=== PATIENT | female | born 1940 | race Caucasian/White ===

== ENCOUNTER 2020-01-06 08:34 | Emergency (ER) | payer MEDICARE ==
[~2020-01-06] VITALS: Ht 152.4 cm; Wt 72.6 kg
[2020-01-06] MEDS ORDERED: MORPHINE SULFATE INJ 4 MG/ML INJ 1ML IM STA (08:44)
[2020-01-06] MEDS ORDERED: METHYLPREDNISOLONE SOD SUCC 125 MG/2ML VIAL IV STA (08:44)
--- NOTE | 2020-01-06 08:44 | Emergency Department Note ---
History of Present Illnes History of Present Illness Chief Complaint: Back Pain History of Present Illness This is a 79 year old female with previous dx of cervical radiculopathy and reports worsening pain R UE . Reports that she had recently ran out of her tylenol #3 and ultram . Historian: Patient Arrival Mode: Car Onset (how long ago): week(s) Severity: moderate Onset quality: gradual Duration (how long): week(s) Timing of current episode: constant Progression: worsening Chronicity: recurrent Context: Denies trauma/injury Relieving factors: immobilization, rest Exacerbating factors: movement Associated symptoms: Denies denies other symptoms, Denies confusion, Denies chest pain, Denies cough, Denies diaphoresis, Denies fever/chills, Denies headaches, Denies loss of appetite, Denies malaise, Denies nausea/vomiting, Denies rash, Denies seizure, Denies shortness of breath, Denies syncope, Denies weakness, Denies other Previous service: tests performed Past Medical/Family History Physician Review I have reviewed the patient's past medical and family history. Any updates have been documented here. Past Medical History Recent Fever: No Clinical Suspicion of Infectio: No New/Unexplained Change in Ment: No Other Medical History: cervical radiculopathy Past Surgical History: None Social History Smoking Cessation: Never Smoker Alcohol Use: None Any Illegal Drug Use: No Review of Systems Review of Systems Constitutional: Reports no symptoms EENTM: Reports no symptoms Cardiovascular: Reports no symptoms Respiratory: Reports no symptoms Gastrointestinal: Reports no symptoms Genitourinary: Reports no symptoms Musculoskeletal: Reports joint pain, Reports muscle pain Integumentary: Reports no symptoms Neurological: Reports no symptoms Psychological: Reports no symptoms Endocrine: Reports no symptoms Hematological/Lymphatic: Reports no symptoms Physical Exam Related Data Allergies: Coded Allergies: Penicillins (Verified Allergy, Unknown, 01/06/20) montelukast (Verified Allergy, Unknown, 01/06/20) Vital signs reviewed: Yes Physical Exam CONSTITUTIONAL Constitutional: Present well-developed, Present well-nourished HENT HENT: Present normocephalic, Present atraumatic, Present oropharynx clear/moist, Present nose normal HENT L/R: Present left ext ear normal, Present right ext ear normal EYES Eyes: Reports PERRL, Reports conjunctivae normal NECK Neck: Present ROM normal PULMONARY Pulmonary: Present effort normal, Present breath sounds normal CARDIOVASCULAR Cardiovascular: Present regular rhythm, Present heart sounds normal, Present capillary refill normal, Present normal rate GASTROINTESTINAL Abdominal: Present soft, Present nontender, Present bowel sounds normal GENITOURINARY Genitourinary: Present exam deferred SKIN Skin: Present warm, Present dry MUSCULOSKELETAL Musculoskeletal: Present ROM normal, Present tenderness (R paracervical spinal tenderness) NEUROLOGICAL Neurological: Present alert, Present oriented x 3, Present no gross motor or sensory deficits PSYCHOLOGICAL Psychological: Present mood/affect normal, Present judgement normal Assessment & Plan Medical Decision Making MDM Diff Dx : shoulder sprain, cervical radiculopathy, musc sprain Assessment & Plan Final Impression: (1) Cervical radiculopathy Depart Disposition: HOME, SELF-CARE [facility]LEY GIRALDO DO Jan 06, 2020 08:44
[2020-01-06] MEDS ORDERED: METHYLPREDNISOLONE SOD SUCC 125 MG/2ML VIAL ONE (08:56)
[2020-01-06] MEDS ORDERED: MORPHINE SULFATE INJ 4 MG/ML INJ 1ML ONE (08:56)
== END 2020-01-06 09:01 | disposition home or self-care (01) ==
LOC: FSED 08:44
DX: M54.12 Radiculopathy, cervical region (principal)
CPT/HCPCS: 99283; J2270; J2930

== ENCOUNTER 2022-05-24 20:38 | Inpatient (IN) | payer MEDICARE ==
[~2022-05-24] VITALS: Ht 160 cm; Wt 84.2 kg
[2022-05-24] MEDS ORDERED: ALBUTEROL SULF 0.083% NEB SOLN 3 ML NEB NEB STA (20:41)
[2022-05-24] MEDS ORDERED: ASPIRIN 81 MG CHEW TAB PO ONE (20:45)
[2022-05-24] MEDS ORDERED: IPRATROPIUM BROMIDE 0.02% 2.5 ML NEB NEB ONE (20:45)
[2022-05-24] MEDS ORDERED: METHYLPREDNISOLONE SOD SUCC 125 MG/2ML VIAL IV ONE (20:45)
[2022-05-24 21:13] LABS: BASOPHILS % 0.4 % (0.0-1.0); EOSINOPHILS # (AUTO) 0.1 (0.0-0.4); EOSINOPHILS % 0.5 % (0.0-6.0); HEMOGLOBIN 13.9 g/dL (12.0-16.0); LYMPHOCYTES # (AUTO) 0.7 (1.0-3.2); LYMPHOCYTES % 7.2 % (18.0-39.1); MEAN CORPUSCULAR HEMOGLOBIN 29.3 pg (28-32); MEAN CORPUSCULAR HGB CONC 31.6 g/dL (31-35); MEAN CORPUSCULAR VOLUME 92.8 fL (81-99); MONOCYTES # (AUTO) 0.3 (0.2-0.8); MONOCYTES % 3.1 % (4.4-11.3); NEUTROPHILS # (AUTO) 8.4 (2.1-6.9); NEUTROPHILS % 88.5 % (38.7-80.0); PLATELET COUNT 221 x10e3/uL (140-360); RED BLOOD COUNT 4.74 x10e6/uL (3.6-5.1); RED CELL DISTRIBUTION WIDTH 16.7 % (11.7-14.4)
[2022-05-24 21:30] LABS: ALBUMIN 3.6 g/dL (3.5-5.0); ALBUMIN/GLOBULIN RATIO 1.1 (0.8-2.0); ANION GAP 16.5 mmol/L (8-16); CALCIUM 8.6 mg/dL (8.4-10.2); CREATININE, SERUM 1.39 mg/dL (0.57-1.11); POTASSIUM 3.5 mmol/L (3.5-5.1)
[2022-05-24 21:37] LABS: CREATINE KINASE MB 4.6 ng/mL (0-5.0)
[2022-05-24] MEDS ORDERED: FUROSEMIDE INJ 10 MG/ML 4 ML VIAL IV ONE (21:45)
[2022-05-24] MEDS ORDERED: ALBUTEROL/IPRATROPIUM 3 ML NEB NEB SCH (23:00)
[2022-05-24 23:37] VITALS: BP 159/77
[2022-05-24] MEDS ORDERED: IPRATROPIUM BROMIDE 0.02% 2.5 ML NEB ONE (23:56)
[2022-05-24] MEDS ORDERED: ALBUTEROL SULF 0.083% NEB SOLN 3 ML NEB ONE (23:57)
[2022-05-25] VITALS (7 sets, daily range): BP systolic 160–186; BP diastolic 63–79
[2022-05-25] MEDS ORDERED: TRELEGY ELLIPT1 EACH INH (00:36)
[2022-05-25] MEDS ORDERED: ELIQUIS2.5 MG PO (00:36)
[2022-05-25] MEDS ORDERED: FUROSEMIDE40 MG PO (00:36)
[2022-05-25] MEDS ORDERED: AMIODARONE HCL100 MG PO (00:36)
[2022-05-25] MEDS ORDERED: ALLOPURINOL100 MG PO (00:36)
[2022-05-25] MEDS ORDERED: LEVOTHYROXINE50 MCG PO (00:36)
[2022-05-25] MEDS ORDERED: ATORVASTATIN CA40 MG PO (00:36)
[2022-05-25 05:12] LABS: BASOPHILS % 0.4 % (0.0-1.0); HEMATOCRIT 43.6 % (34.2-44.1); HEMOGLOBIN 14.1 g/dL (12.0-16.0); LYMPHOCYTES # (AUTO) 0.2 (1.0-3.2); LYMPHOCYTES % 3.5 % (18.0-39.1); MEAN CORPUSCULAR HEMOGLOBIN 29.7 pg (28-32); MEAN CORPUSCULAR HGB CONC 32.3 g/dL (31-35); MEAN CORPUSCULAR VOLUME 91.8 fL (81-99); MONOCYTES # (AUTO) 0.1 (0.2-0.8); NEUTROPHILS # (AUTO) 5.1 (2.1-6.9); NEUTROPHILS % 93.9 % (38.7-80.0); PLATELET COUNT 226 x10e3/uL (140-360); RED BLOOD COUNT 4.75 x10e6/uL (3.6-5.1); RED CELL DISTRIBUTION WIDTH 16.4 % (11.7-14.4)
[2022-05-25 05:24] LABS: ALBUMIN 3.5 g/dL (3.5-5.0); ALBUMIN/GLOBULIN RATIO 1.1 (0.8-2.0); ANION GAP 18.3 mmol/L (8-16); CALCIUM 9.1 mg/dL (8.4-10.2); CREATININE, SERUM 1.19 mg/dL (0.57-1.11); POTASSIUM 3.3 mmol/L (3.5-5.1)
[2022-05-25 05:49] LABS: CREATINE KINASE MB 5.4 ng/mL (0-5.0)
[2022-05-25] MEDS: METHYLPREDNISOLONE SOD SUCC 40 MG/ML VIAL 1ML IV SCH ×4 (06:39→17:31)
[2022-05-25] MEDS: IPRATROPIUM BROMIDE 0.02% 2.5 ML NEB NEB SCH ×6 (07:15→23:30)
[2022-05-25] MEDS: ALBUTEROL SULF 0.083% NEB SOLN 3 ML NEB NEB SCH ×6 (07:15→23:30)
[2022-05-25] MEDS: FUROSEMIDE INJ 10 MG/ML 4 ML VIAL IV SCH ×2 (08:30→17:30)
[2022-05-25] MEDS ORDERED: ONDANSETRON HCL INJ 2MG/ML 2ML 2 MG/ML VIAL IV PRN (08:45)
[2022-05-25] MEDS ORDERED: POTASSIUM CHLORIDE 20 MEQ TAB CR PO ONE (09:30)
[2022-05-25] MEDS: DOCUSATE SODIUM 100 MG CAP PO SCH (09:32)
[2022-05-25] MEDS: CEPACOL SORE THROAT LOZENGES PO PRN (09:33)
[2022-05-25] MEDS: APIXAB 2.5 MG TABLET PO SCH ×2 (09:33→17:30)
[2022-05-25] MEDS: GUAIFENESIN 200 MG/10 ML UDC PO PRN (09:33)
[2022-05-25] MEDS: AMIODARONE HCL 200 MG TAB PO SCH (09:33)
[2022-05-25] MEDS: ALLOPURINOL 100 MG TAB PO SCH (09:34)
[2022-05-25] MEDS: SENNOSIDES 8.6 MG TAB PO SCH (09:34)
[2022-05-25] MEDS: ACETAMINOPHEN 325 MG TAB PO PRN ×2 (09:35→21:10)
[2022-05-25] MEDS: LEVOTHYROXINE SODIUM 50 MCG TAB PO SCH (09:36)
[2022-05-25 14:55] LABS: CREATINE KINASE MB 6.7 ng/mL (0-5.0)
[2022-05-25 15:09] LABS: POTASSIUM 3.8 mmol/L (3.5-5.1)
[2022-05-25] MEDS ORDERED: APIXAB 2.5 MG TABLET PO SCH (17:00)
[2022-05-25] MEDS ORDERED: ROPINIROLE HCL1 MG PO (19:49)
[2022-05-25] MEDS: ATORVASTATIN 40 MG TAB PO SCH (21:09)
[2022-05-25] MEDS: ROPINIROLE HCL 1 MG TAB PO SCH (23:09)
[2022-05-26] VITALS (7 sets, daily range): BP systolic 118–176; BP diastolic 59–80
[2022-05-26] MEDS: METHYLPREDNISOLONE SOD SUCC 40 MG/ML VIAL 1ML IV SCH ×4 (00:19→17:54)
[2022-05-26] MEDS: ALBUTEROL SULF 0.083% NEB SOLN 3 ML NEB NEB SCH ×5 (03:30→19:20)
[2022-05-26] MEDS: IPRATROPIUM BROMIDE 0.02% 2.5 ML NEB NEB SCH ×5 (03:30→19:25)
[2022-05-26 05:33] LABS: BASOPHILS % 0.1 % (0.0-1.0); HEMATOCRIT 44.8 % (34.2-44.1); HEMOGLOBIN 14.3 g/dL (12.0-16.0); LYMPHOCYTES # (AUTO) 0.4 (1.0-3.2); LYMPHOCYTES % 4.9 % (18.0-39.1); MEAN CORPUSCULAR HEMOGLOBIN 29.5 pg (28-32); MEAN CORPUSCULAR HGB CONC 31.9 g/dL (31-35); MEAN CORPUSCULAR VOLUME 92.4 fL (81-99); MONOCYTES # (AUTO) 0.5 (0.2-0.8); MONOCYTES % 6.3 % (4.4-11.3); NEUTROPHILS # (AUTO) 6.9 (2.1-6.9); NEUTROPHILS % 88.3 % (38.7-80.0); PLATELET COUNT 248 x10e3/uL (140-360); RED BLOOD COUNT 4.85 x10e6/uL (3.6-5.1); RED CELL DISTRIBUTION WIDTH 16.6 % (11.7-14.4)
[2022-05-26 06:02] LABS: ALBUMIN 3.4 g/dL (3.5-5.0); ANION GAP 18.6 mmol/L (8-16); CALCIUM 9.4 mg/dL (8.4-10.2); CREATININE, SERUM 1.23 mg/dL (0.57-1.11); MAGNESIUM 2.1 MG/DL (1.3-2.1); POTASSIUM 3.6 mmol/L (3.5-5.1)
[2022-05-26] MEDS: LEVOTHYROXINE SODIUM 50 MCG TAB PO SCH (06:23)
[2022-05-26] MEDS ORDERED: AMIODARONE HCL 200 MG TAB PO SCH (09:00)
[2022-05-26] MEDS ORDERED: LEVOTHYROXINE SODIUM 50 MCG TAB PO SCH (09:30)
[2022-05-26] MEDS: APIXAB 2.5 MG TABLET PO SCH ×2 (09:53→17:54)
[2022-05-26] MEDS: AMIODARONE HCL 200 MG TAB PO SCH (09:53)
[2022-05-26] MEDS: ALLOPURINOL 100 MG TAB PO SCH (09:53)
[2022-05-26] MEDS: DOCUSATE SODIUM 100 MG CAP PO SCH (09:53)
[2022-05-26] MEDS: FUROSEMIDE INJ 10 MG/ML 4 ML VIAL IV SCH ×2 (09:53→17:54)
[2022-05-26] MEDS: SENNOSIDES 8.6 MG TAB PO SCH (09:53)
[2022-05-26] MEDS: CEPACOL SORE THROAT LOZENGES PO PRN ×2 (10:06→18:13)
[2022-05-26] MEDS: GUAIFENESIN 200 MG/10 ML UDC PO PRN ×2 (10:06→18:13)
[2022-05-26] MEDS: ACETAMINOPHEN 325 MG TAB PO PRN ×2 (10:15→20:10)
[2022-05-26] MEDS ORDERED: ONDANSETRON HCL 4 MG ORAL DISINTEGRATING TAB PO PRN (11:15)
[2022-05-26] MEDS ORDERED: METOLAZONE 5 MG TAB PO ONE (18:55)
[2022-05-26] MEDS: ROPINIROLE HCL 1 MG TAB PO SCH (20:07)
[2022-05-26] MEDS: ATORVASTATIN 40 MG TAB PO SCH (20:07)
[2022-05-27] VITALS (11 sets, daily range): BP systolic 122–180; BP diastolic 68–83
[2022-05-27] MEDS: METHYLPREDNISOLONE SOD SUCC 40 MG/ML VIAL 1ML IV SCH ×2 (01:32→05:35)
[2022-05-27] MEDS: ALBUTEROL SULF 0.083% NEB SOLN 3 ML NEB NEB SCH ×6 (03:10→22:34)
[2022-05-27] MEDS: IPRATROPIUM BROMIDE 0.02% 2.5 ML NEB NEB SCH ×6 (03:10→22:34)
[2022-05-27 04:56] LABS: BASOPHILS % 0.1 % (0.0-1.0); HEMATOCRIT 46.5 % (34.2-44.1); HEMOGLOBIN 14.7 g/dL (12.0-16.0); LYMPHOCYTES # (AUTO) 0.4 (1.0-3.2); LYMPHOCYTES % 5.1 % (18.0-39.1); MEAN CORPUSCULAR HEMOGLOBIN 29.6 pg (28-32); MEAN CORPUSCULAR HGB CONC 31.6 g/dL (31-35); MEAN CORPUSCULAR VOLUME 93.8 fL (81-99); MONOCYTES # (AUTO) 0.4 (0.2-0.8); MONOCYTES % 5.6 % (4.4-11.3); NEUTROPHILS % 88.6 % (38.7-80.0); PLATELET COUNT 263 x10e3/uL (140-360); RED BLOOD COUNT 4.96 x10e6/uL (3.6-5.1); RED CELL DISTRIBUTION WIDTH 16.7 % (11.7-14.4)
[2022-05-27 05:23] LABS: ALBUMIN 3.5 g/dL (3.5-5.0); ALBUMIN/GLOBULIN RATIO 1.1 (0.8-2.0); ANION GAP 17.8 mmol/L (8-16); CALCIUM 9.2 mg/dL (8.4-10.2); CREATININE, SERUM 1.55 mg/dL (0.57-1.11); MAGNESIUM 2.3 MG/DL (1.3-2.1); POTASSIUM 3.8 mmol/L (3.5-5.1)
[2022-05-27] MEDS: LEVOTHYROXINE SODIUM 50 MCG TAB PO SCH (05:36)
[2022-05-27 06:49] LABS: ANION GAP 17.7 mmol/L (8-16); CALCIUM 9.3 mg/dL (8.4-10.2); CREATININE, SERUM 1.52 mg/dL (0.57-1.11); POTASSIUM 3.7 mmol/L (3.5-5.1)
[2022-05-27] MEDS: GUAIFENESIN 200 MG/10 ML UDC PO PRN ×2 (07:57→21:45)
[2022-05-27] MEDS: CEPACOL SORE THROAT LOZENGES PO PRN (07:58)
[2022-05-27] MEDS: ACETAMINOPHEN 325 MG TAB PO PRN ×2 (07:58→21:45)
[2022-05-27] MEDS ORDERED: METOLAZONE 5 MG TAB PO SCH (09:00)
[2022-05-27] MEDS ORDERED: HYDRALAZINE HCL 20 MG/ML VIAL IV PRN (09:00)
[2022-05-27] MEDS: APIXAB 2.5 MG TABLET PO SCH ×2 (09:21→17:31)
[2022-05-27] MEDS: FUROSEMIDE INJ 10 MG/ML 2 ML VIAL IV SCH ×2 (09:21→17:32)
[2022-05-27] MEDS: ALLOPURINOL 100 MG TAB PO SCH (09:22)
[2022-05-27] MEDS: AZITHROMYCIN 250 MG TAB PO SCH (09:22)
[2022-05-27] MEDS: AMIODARONE HCL 200 MG TAB PO SCH (09:22)
[2022-05-27] MEDS: SENNOSIDES 8.6 MG TAB PO SCH (09:23)
[2022-05-27] MEDS: DOCUSATE SODIUM 100 MG CAP PO SCH (09:25)
[2022-05-27 11:39] LABS: ANION GAP 16.7 mmol/L (8-16); CALCIUM 9.3 mg/dL (8.4-10.2); CREATININE, SERUM 1.56 mg/dL (0.57-1.11); POTASSIUM 3.7 mmol/L (3.5-5.1)
[2022-05-27] MEDS ORDERED: Vancomycin IV 1 GM in SODIUM CHLORIDE 0.9% 250ML 250 ML IV ONE (11:45)
[2022-05-27] MEDS: AMLODIPINE BESYLATE 5 MG TAB PO SCH (11:47)
[2022-05-27] MEDS ORDERED: IOPAMIDOL 370 MG/ML 100 ML INFUS..BTL INJ ONE (12:54)
[2022-05-27] MEDS: ROPINIROLE HCL 1 MG TAB PO SCH (21:46)
[2022-05-27] MEDS: ATORVASTATIN 40 MG TAB PO SCH (21:47)
[2022-05-28] VITALS (7 sets, daily range): BP systolic 135–163; BP diastolic 62–78
[2022-05-28] MEDS: IPRATROPIUM BROMIDE 0.02% 2.5 ML NEB NEB SCH ×5 (03:30→19:00)
[2022-05-28] MEDS: ALBUTEROL SULF 0.083% NEB SOLN 3 ML NEB NEB SCH ×2 (03:30→06:30)
[2022-05-28] MEDS: LEVOTHYROXINE SODIUM 50 MCG TAB PO SCH (05:47)
[2022-05-28 06:03] LABS: BASOPHILS % 0.6 % (0.0-1.0); EOSINOPHILS % 0.4 % (0.0-6.0); HEMATOCRIT 46.2 % (34.2-44.1); HEMOGLOBIN 14.6 g/dL (12.0-16.0); LYMPHOCYTES % 14.3 % (18.0-39.1); MEAN CORPUSCULAR HEMOGLOBIN 29.1 pg (28-32); MEAN CORPUSCULAR HGB CONC 31.6 g/dL (31-35); MONOCYTES # (AUTO) 0.9 (0.2-0.8); MONOCYTES % 13.2 % (4.4-11.3); NEUTROPHILS % 71.1 % (38.7-80.0); PLATELET COUNT 260 x10e3/uL (140-360); RED BLOOD COUNT 5.02 x10e6/uL (3.6-5.1); RED CELL DISTRIBUTION WIDTH 16.1 % (11.7-14.4)
[2022-05-28 06:38] LABS: ALBUMIN 3.4 g/dL (3.5-5.0); ALBUMIN/GLOBULIN RATIO 1.2 (0.8-2.0); ANION GAP 17.3 mmol/L (8-16); CREATININE, SERUM 1.48 mg/dL (0.57-1.11); MAGNESIUM 2.2 MG/DL (1.3-2.1); POTASSIUM 3.3 mmol/L (3.5-5.1)
[2022-05-28] MEDS: APIXAB 2.5 MG TABLET PO SCH ×2 (08:29→17:04)
[2022-05-28] MEDS: ACETAMINOPHEN 325 MG TAB PO PRN ×2 (08:29→21:10)
[2022-05-28] MEDS: SENNOSIDES 8.6 MG TAB PO SCH (08:30)
[2022-05-28] MEDS: ALLOPURINOL 100 MG TAB PO SCH (08:30)
[2022-05-28] MEDS: FUROSEMIDE INJ 10 MG/ML 2 ML VIAL IV SCH (08:30)
[2022-05-28] MEDS: AMLODIPINE BESYLATE 5 MG TAB PO SCH (08:30)
[2022-05-28] MEDS: PREDNISONE 20 MG TAB PO SCH (08:30)
[2022-05-28] MEDS: AZITHROMYCIN 250 MG TAB PO SCH (08:30)
[2022-05-28] MEDS: DOCUSATE SODIUM 100 MG CAP PO SCH (08:30)
[2022-05-28] MEDS: AMIODARONE HCL 200 MG TAB PO SCH (08:31)
[2022-05-28] MEDS ORDERED: ONDANSETRON HCL 4 MG ORAL DISINTEGRATING TAB PO PRN (09:15)
[2022-05-28] MEDS ORDERED: POTASSIUM CHLORIDE 10MEQ EA PO ONE ×2 (10:00→14:10)
[2022-05-28] MEDS: BUDESONIDE 0.5MG/2 ML NEB INH SCH (19:00)
[2022-05-28] MEDS: ROPINIROLE HCL 1 MG TAB PO SCH (21:10)
[2022-05-28] MEDS: ATORVASTATIN 40 MG TAB PO SCH (21:11)
[2022-05-29] VITALS (8 sets, daily range): BP systolic 131–168; BP diastolic 60–79
[2022-05-29] MEDS: IPRATROPIUM BROMIDE 0.02% 2.5 ML NEB NEB SCH ×4 (00:25→19:05)
[2022-05-29] MEDS: LEVOTHYROXINE SODIUM 50 MCG TAB PO SCH (05:54)
[2022-05-29] MEDS: BUDESONIDE 0.5MG/2 ML NEB INH SCH ×2 (06:30→19:05)
[2022-05-29 07:11] LABS: BASOPHILS # (AUTO) 0.1 (0.0-0.1); BASOPHILS % 0.8 % (0.0-1.0); EOSINOPHILS # (AUTO) 0.1 (0.0-0.4); EOSINOPHILS % 1.4 % (0.0-6.0); HEMATOCRIT 44.8 % (34.2-44.1); HEMOGLOBIN 14.5 g/dL (12.0-16.0); LYMPHOCYTES # (AUTO) 1.1 (1.0-3.2); LYMPHOCYTES % 16.7 % (18.0-39.1); MEAN CORPUSCULAR HEMOGLOBIN 29.4 pg (28-32); MEAN CORPUSCULAR HGB CONC 32.4 g/dL (31-35); MEAN CORPUSCULAR VOLUME 90.9 fL (81-99); MONOCYTES # (AUTO) 0.8 (0.2-0.8); MONOCYTES % 12.1 % (4.4-11.3); NEUTROPHILS # (AUTO) 4.4 (2.1-6.9); NEUTROPHILS % 68.5 % (38.7-80.0); PLATELET COUNT 257 x10e3/uL (140-360); RED BLOOD COUNT 4.93 x10e6/uL (3.6-5.1); RED CELL DISTRIBUTION WIDTH 15.6 % (11.7-14.4)
[2022-05-29 07:27] LABS: POTASSIUM 3.3 mmol/L (3.5-5.1)
[2022-05-29 07:28] LABS: ANION GAP 15.3 mmol/L (8-16); CALCIUM 8.9 mg/dL (8.4-10.2); CREATININE, SERUM 1.3 mg/dL (0.57-1.11)
[2022-05-29 08:02] LABS: MAGNESIUM 2.4 MG/DL (1.3-2.1)
[2022-05-29] MEDS: DOCUSATE SODIUM 100 MG CAP PO SCH (09:20)
[2022-05-29] MEDS: SENNOSIDES 8.6 MG TAB PO SCH (09:20)
[2022-05-29] MEDS: ALLOPURINOL 100 MG TAB PO SCH (09:21)
[2022-05-29] MEDS: AZITHROMYCIN 250 MG TAB PO SCH (09:21)
[2022-05-29] MEDS: APIXAB 2.5 MG TABLET PO SCH ×2 (09:21→16:23)
[2022-05-29] MEDS: PREDNISONE 20 MG TAB PO SCH (09:22)
[2022-05-29] MEDS: AMLODIPINE BESYLATE 5 MG TAB PO SCH (09:22)
[2022-05-29] MEDS: AMIODARONE HCL 200 MG TAB PO SCH (09:22)
[2022-05-29] MEDS ORDERED: POTASSIUM CHLORIDE 10MEQ EA PO ONE (10:15)
[2022-05-29 10:51] LABS: LYMPHOCYTES % (MANUAL) 14 % (19-48); MONOCYTES % (MANUAL) 12 % (3.4-9.0); NEUTROPHILS % (MANUAL) 74 % (40-74); PLATELET ESTIMATE ADEQUATE
[2022-05-29 10:52] LABS: PLATELET MORPHOLOGY COMMENT NORMAL; RBC MORPHOLOGY COMMENT NORMAL
[2022-05-29] MEDS ORDERED: MAGNESIUM/ALUMINUM/SIMETHICONE 30 ML UDC PO PRN (12:30)
[2022-05-29] MEDS: ATORVASTATIN 40 MG TAB PO SCH (20:56)
[2022-05-29] MEDS: ROPINIROLE HCL 1 MG TAB PO SCH (20:56)
[2022-05-29] MEDS: ACETAMINOPHEN 325 MG TAB PO PRN (20:58)
[2022-05-30] VITALS (9 sets, daily range): BP systolic 134–158; BP diastolic 64–76
[2022-05-30] MEDS: IPRATROPIUM BROMIDE 0.02% 2.5 ML NEB NEB SCH ×4 (00:25→19:05)
[2022-05-30] MEDS: LEVOTHYROXINE SODIUM 50 MCG TAB PO SCH (06:14)
[2022-05-30] MEDS: BUDESONIDE 0.5MG/2 ML NEB INH SCH ×2 (07:00→19:05)
[2022-05-30] MEDS: APIXAB 2.5 MG TABLET PO SCH ×2 (08:37→16:22)
[2022-05-30] MEDS: AZITHROMYCIN 250 MG TAB PO SCH (08:37)
[2022-05-30] MEDS: PREDNISONE 20 MG TAB PO SCH (08:37)
[2022-05-30] MEDS: SENNOSIDES 8.6 MG TAB PO SCH (08:38)
[2022-05-30] MEDS: AMLODIPINE BESYLATE 5 MG TAB PO SCH (08:38)
[2022-05-30] MEDS: DOCUSATE SODIUM 100 MG CAP PO SCH (08:38)
[2022-05-30] MEDS: ALLOPURINOL 100 MG TAB PO SCH (08:38)
[2022-05-30] MEDS: AMIODARONE HCL 200 MG TAB PO SCH (08:38)
[2022-05-30] MEDS ORDERED: POTASSIUM CHLORIDE 10MEQ EA PO ONE (10:00)
[2022-05-30] MEDS ORDERED: HYDROXYZINE HCL 10 MG TAB PO PRN (10:15)
[2022-05-30] MEDS: ATORVASTATIN 40 MG TAB PO SCH (20:38)
[2022-05-30] MEDS: ROPINIROLE HCL 1 MG TAB PO SCH (20:38)
[2022-05-31] VITALS (7 sets, daily range): BP systolic 138–161; BP diastolic 58–94
[2022-05-31] MEDS: IPRATROPIUM BROMIDE 0.02% 2.5 ML NEB NEB SCH ×4 (01:00→19:20)
[2022-05-31] MEDS: LEVOTHYROXINE SODIUM 50 MCG TAB PO SCH (04:58)
[2022-05-31] MEDS: BUDESONIDE 0.5MG/2 ML NEB INH SCH ×2 (06:30→19:20)
[2022-05-31] MEDS: AMIODARONE HCL 200 MG TAB PO SCH (09:00)
[2022-05-31 09:04] LABS: BASOPHILS # (AUTO) 0.1 (0.0-0.1); BASOPHILS % 0.9 % (0.0-1.0); EOSINOPHILS # (AUTO) 0.3 (0.0-0.4); EOSINOPHILS % 4.3 % (0.0-6.0); HEMATOCRIT 50.5 % (34.2-44.1); HEMOGLOBIN 15.6 g/dL (12.0-16.0); LYMPHOCYTES # (AUTO) 1.7 (1.0-3.2); LYMPHOCYTES % 22.5 % (18.0-39.1); MEAN CORPUSCULAR HEMOGLOBIN 29.2 pg (28-32); MEAN CORPUSCULAR HGB CONC 30.9 g/dL (31-35); MEAN CORPUSCULAR VOLUME 94.4 fL (81-99); MONOCYTES # (AUTO) 0.6 (0.2-0.8); MONOCYTES % 8.4 % (4.4-11.3); NEUTROPHILS # (AUTO) 4.9 (2.1-6.9); NEUTROPHILS % 63.6 % (38.7-80.0); PLATELET COUNT 275 x10e3/uL (140-360); RED BLOOD COUNT 5.35 x10e6/uL (3.6-5.1); RED CELL DISTRIBUTION WIDTH 16.2 % (11.7-14.4)
[2022-05-31 09:24] LABS: ANION GAP 13.2 mmol/L (8-16); CALCIUM 9.1 mg/dL (8.4-10.2); CREATININE, SERUM 1.1 mg/dL (0.57-1.11); POTASSIUM 4.2 mmol/L (3.5-5.1)
[2022-05-31] MEDS: DOCUSATE SODIUM 100 MG CAP PO SCH (09:43)
[2022-05-31] MEDS: APIXAB 2.5 MG TABLET PO SCH ×2 (09:43→16:59)
[2022-05-31] MEDS: AZITHROMYCIN 250 MG TAB PO SCH (09:43)
[2022-05-31] MEDS: AMLODIPINE BESYLATE 5 MG TAB PO SCH (09:43)
[2022-05-31] MEDS: SENNOSIDES 8.6 MG TAB PO SCH (09:44)
[2022-05-31] MEDS: ALLOPURINOL 100 MG TAB PO SCH (09:45)
[2022-05-31] MEDS: PREDNISONE 20 MG TAB PO SCH (09:45)
[2022-05-31 12:03] LABS: MAGNESIUM 2.6 MG/DL (1.3-2.1); PHOSPHORUS 2.4 MG/DL (2.3-4.7)
[2022-05-31] MEDS: ROPINIROLE HCL 1 MG TAB PO SCH (20:30)
[2022-05-31] MEDS: ATORVASTATIN 40 MG TAB PO SCH (20:31)
[2022-05-31] MEDS: ACETAMINOPHEN 325 MG TAB PO PRN (20:32)
[2022-06-01] VITALS (7 sets, daily range): BP systolic 101–165; BP diastolic 52–70
[2022-06-01] MEDS: IPRATROPIUM BROMIDE 0.02% 2.5 ML NEB NEB SCH ×4 (00:52→19:05)
[2022-06-01] MEDS: GUAIFENESIN 200 MG/10 ML UDC PO PRN ×2 (04:10→20:54)
[2022-06-01] MEDS: CEPACOL SORE THROAT LOZENGES PO PRN ×2 (04:10→20:54)
[2022-06-01] MEDS: LEVOTHYROXINE SODIUM 50 MCG TAB PO SCH (05:14)
[2022-06-01] MEDS: BUDESONIDE 0.5MG/2 ML NEB INH SCH ×2 (07:00→19:20)
[2022-06-01] MEDS: AZITHROMYCIN 250 MG TAB PO SCH (08:51)
[2022-06-01] MEDS: PREDNISONE 20 MG TAB PO SCH (08:52)
[2022-06-01] MEDS: DOCUSATE SODIUM 100 MG CAP PO SCH (08:52)
[2022-06-01] MEDS: ALLOPURINOL 100 MG TAB PO SCH (08:52)
[2022-06-01] MEDS: SENNOSIDES 8.6 MG TAB PO SCH (08:52)
[2022-06-01] MEDS: AMIODARONE HCL 200 MG TAB PO SCH (08:52)
[2022-06-01] MEDS: AMLODIPINE BESYLATE 5 MG TAB PO SCH (08:52)
[2022-06-01] MEDS: APIXAB 2.5 MG TABLET PO SCH ×2 (08:52→17:20)
[2022-06-01] MEDS: ROPINIROLE HCL 1 MG TAB PO SCH (20:32)
[2022-06-01] MEDS: ATORVASTATIN 40 MG TAB PO SCH (20:32)
[2022-06-01] MEDS: ACETAMINOPHEN 325 MG TAB PO PRN (20:41)
[2022-06-02] VITALS (8 sets, daily range): BP systolic 109–165; BP diastolic 55–84
[2022-06-02] MEDS: IPRATROPIUM BROMIDE 0.02% 2.5 ML NEB NEB SCH ×4 (01:00→20:05)
[2022-06-02] MEDS: GUAIFENESIN 200 MG/10 ML UDC PO PRN (04:16)
[2022-06-02] MEDS: LEVOTHYROXINE SODIUM 50 MCG TAB PO SCH (05:05)
[2022-06-02] MEDS: BUDESONIDE 0.5MG/2 ML NEB INH SCH ×2 (07:20→20:05)
[2022-06-02 07:33] LABS: THYROID STIMULATING HORMONE 0.669 uIU/mL (0.350-4.940)
[2022-06-02] MEDS: SENNOSIDES 8.6 MG TAB PO SCH (08:35)
[2022-06-02] MEDS: APIXAB 2.5 MG TABLET PO SCH ×2 (08:35→16:56)
[2022-06-02] MEDS: AZITHROMYCIN 250 MG TAB PO SCH (08:35)
[2022-06-02] MEDS: DOCUSATE SODIUM 100 MG CAP PO SCH (08:36)
[2022-06-02] MEDS: AMLODIPINE BESYLATE 5 MG TAB PO SCH (08:36)
[2022-06-02] MEDS: AMIODARONE HCL 200 MG TAB PO SCH (08:37)
[2022-06-02] MEDS: ALLOPURINOL 100 MG TAB PO SCH (08:37)
[2022-06-02] MEDS ORDERED: PREDNISONE 20 MG TAB PO SCH (09:00)
[2022-06-02] MEDS: ROPINIROLE HCL 1 MG TAB PO SCH (20:54)
[2022-06-02] MEDS: ATORVASTATIN 40 MG TAB PO SCH (20:55)
[2022-06-03] VITALS (7 sets, daily range): BP systolic 117–151; BP diastolic 60–91
[2022-06-03] MEDS: IPRATROPIUM BROMIDE 0.02% 2.5 ML NEB NEB SCH ×4 (02:15→18:20)
[2022-06-03] MEDS: LEVOTHYROXINE SODIUM 50 MCG TAB PO SCH (05:54)
[2022-06-03] MEDS: BUDESONIDE 0.5MG/2 ML NEB INH SCH ×2 (06:45→18:20)
[2022-06-03] MEDS ORDERED: PREDNISONE 20 MG TAB PO SCH (09:00)
[2022-06-03] MEDS: AMLODIPINE BESYLATE 5 MG TAB PO SCH (09:02)
[2022-06-03] MEDS: DOCUSATE SODIUM 100 MG CAP PO SCH (09:04)
[2022-06-03] MEDS: APIXAB 2.5 MG TABLET PO SCH ×2 (09:04→17:18)
[2022-06-03] MEDS: ALLOPURINOL 100 MG TAB PO SCH (09:04)
[2022-06-03] MEDS: AZITHROMYCIN 250 MG TAB PO SCH ×2 (09:04→09:07)
[2022-06-03] MEDS: AMIODARONE HCL 200 MG TAB PO SCH (09:05)
[2022-06-03] MEDS: SENNOSIDES 8.6 MG TAB PO SCH (09:07)
[2022-06-03] MEDS: GUAIFENESIN 200 MG/10 ML UDC PO PRN ×2 (09:12→14:58)
[2022-06-03] MEDS: CEPACOL SORE THROAT LOZENGES PO PRN (15:42)
[2022-06-03] MEDS: ATORVASTATIN 40 MG TAB PO SCH (22:12)
[2022-06-03] MEDS: ROPINIROLE HCL 1 MG TAB PO SCH (22:12)
[2022-06-03] MEDS: ACETAMINOPHEN 325 MG TAB PO PRN (22:15)
[2022-06-04] VITALS (9 sets, daily range): BP systolic 125–147; BP diastolic 50–88
[2022-06-04] MEDS: IPRATROPIUM BROMIDE 0.02% 2.5 ML NEB NEB SCH ×4 (00:15→20:35)
[2022-06-04] MEDS: LEVOTHYROXINE SODIUM 50 MCG TAB PO SCH (06:30)
[2022-06-04] MEDS: BUDESONIDE 0.5MG/2 ML NEB INH SCH ×2 (07:13→20:35)
[2022-06-04] MEDS: AZITHROMYCIN 250 MG TAB PO SCH (09:06)
[2022-06-04] MEDS: APIXAB 2.5 MG TABLET PO SCH ×2 (09:06→17:15)
[2022-06-04] MEDS: ALLOPURINOL 100 MG TAB PO SCH (09:06)
[2022-06-04] MEDS: SENNOSIDES 8.6 MG TAB PO SCH (09:06)
[2022-06-04] MEDS: DOCUSATE SODIUM 100 MG CAP PO SCH (09:06)
[2022-06-04] MEDS: AMIODARONE HCL 200 MG TAB PO SCH (09:06)
[2022-06-04] MEDS: AMLODIPINE BESYLATE 5 MG TAB PO SCH (09:07)
[2022-06-04] MEDS: PREDNISONE 10 MG TAB PO SCH (09:09)
[2022-06-04 11:06] LABS: BASOPHILS # (AUTO) 0.1 (0.0-0.1); EOSINOPHILS # (AUTO) 0.1 (0.0-0.4); EOSINOPHILS % 0.9 % (0.0-6.0); HEMATOCRIT 46.6 % (34.2-44.1); HEMOGLOBIN 14.7 g/dL (12.0-16.0); LYMPHOCYTES # (AUTO) 2.6 (1.0-3.2); LYMPHOCYTES % 21.1 % (18.0-39.1); MEAN CORPUSCULAR HEMOGLOBIN 29.6 pg (28-32); MEAN CORPUSCULAR HGB CONC 31.5 g/dL (31-35); MEAN CORPUSCULAR VOLUME 93.8 fL (81-99); MONOCYTES # (AUTO) 1.1 (0.2-0.8); MONOCYTES % 8.5 % (4.4-11.3); NEUTROPHILS # (AUTO) 8.4 (2.1-6.9); NEUTROPHILS % 67.5 % (38.7-80.0); PLATELET COUNT 298 x10e3/uL (140-360); RED BLOOD COUNT 4.97 x10e6/uL (3.6-5.1); RED CELL DISTRIBUTION WIDTH 16.5 % (11.7-14.4)
[2022-06-04 11:34] LABS: ANION GAP 12.5 mmol/L (8-16); CALCIUM 8.6 mg/dL (8.4-10.2); CREATININE, SERUM 0.89 mg/dL (0.57-1.11); POTASSIUM 4.5 mmol/L (3.5-5.1)
[2022-06-04] MEDS: ATORVASTATIN 40 MG TAB PO SCH (20:38)
[2022-06-04] MEDS: ROPINIROLE HCL 1 MG TAB PO SCH (20:38)
[2022-06-04] MEDS: ACETAMINOPHEN 325 MG TAB PO PRN (20:47)
[2022-06-05] VITALS (8 sets, daily range): BP systolic 121–147; BP diastolic 55–69
[2022-06-05] MEDS: IPRATROPIUM BROMIDE 0.02% 2.5 ML NEB NEB SCH ×4 (01:05→19:45)
[2022-06-05] MEDS: LEVOTHYROXINE SODIUM 50 MCG TAB PO SCH (05:31)
[2022-06-05] MEDS: BUDESONIDE 0.5MG/2 ML NEB INH SCH ×2 (06:30→19:42)
[2022-06-05 06:59] LABS: BASOPHILS # (AUTO) 0.1 (0.0-0.1); BASOPHILS % 1.5 % (0.0-1.0); EOSINOPHILS # (AUTO) 0.2 (0.0-0.4); EOSINOPHILS % 2.2 % (0.0-6.0); HEMATOCRIT 45.8 % (34.2-44.1); HEMOGLOBIN 14.3 g/dL (12.0-16.0); LYMPHOCYTES # (AUTO) 2.4 (1.0-3.2); LYMPHOCYTES % 25.8 % (18.0-39.1); MEAN CORPUSCULAR HEMOGLOBIN 29.1 pg (28-32); MEAN CORPUSCULAR HGB CONC 31.2 g/dL (31-35); MEAN CORPUSCULAR VOLUME 93.3 fL (81-99); MONOCYTES # (AUTO) 0.7 (0.2-0.8); NEUTROPHILS # (AUTO) 5.7 (2.1-6.9); NEUTROPHILS % 61.1 % (38.7-80.0); PLATELET COUNT 304 x10e3/uL (140-360); RED BLOOD COUNT 4.91 x10e6/uL (3.6-5.1); RED CELL DISTRIBUTION WIDTH 16.1 % (11.7-14.4)
[2022-06-05 07:17] LABS: ANION GAP 12.3 mmol/L (8-16); CALCIUM 8.8 mg/dL (8.4-10.2); CREATININE, SERUM 1.04 mg/dL (0.57-1.11); POTASSIUM 4.3 mmol/L (3.5-5.1)
[2022-06-05] MEDS: PREDNISONE 10 MG TAB PO SCH (09:40)
[2022-06-05] MEDS: DOCUSATE SODIUM 100 MG CAP PO SCH (09:40)
[2022-06-05] MEDS: ALLOPURINOL 100 MG TAB PO SCH (09:41)
[2022-06-05] MEDS: APIXAB 2.5 MG TABLET PO SCH ×2 (09:41→17:11)
[2022-06-05] MEDS: SENNOSIDES 8.6 MG TAB PO SCH (09:41)
[2022-06-05] MEDS: AMLODIPINE BESYLATE 5 MG TAB PO SCH (09:41)
[2022-06-05] MEDS: AMIODARONE HCL 200 MG TAB PO SCH (09:41)
[2022-06-05] MEDS: AZITHROMYCIN 250 MG TAB PO SCH (09:41)
[2022-06-05] MEDS: CEPACOL SORE THROAT LOZENGES PO PRN (21:18)
[2022-06-05] MEDS: ROPINIROLE HCL 1 MG TAB PO SCH (21:18)
[2022-06-05] MEDS: ATORVASTATIN 40 MG TAB PO SCH (21:18)
[2022-06-06] MEDS: IPRATROPIUM BROMIDE 0.02% 2.5 ML NEB NEB SCH ×4 (00:50→19:45)
[2022-06-06] MEDS: BUDESONIDE 0.5MG/2 ML NEB INH SCH ×2 (06:05→19:46)
[2022-06-06] MEDS: LEVOTHYROXINE SODIUM 50 MCG TAB PO SCH (06:11)
[2022-06-06 08:35] VITALS: BP 155/63
[2022-06-06 08:37] VITALS: BP 155/63
[2022-06-06] MEDS: DOCUSATE SODIUM 100 MG CAP PO SCH (09:00)
[2022-06-06] MEDS: SENNOSIDES 8.6 MG TAB PO SCH (09:00)
[2022-06-06] MEDS: AMLODIPINE BESYLATE 5 MG TAB PO SCH (09:04)
[2022-06-06] MEDS: ALLOPURINOL 100 MG TAB PO SCH (09:05)
[2022-06-06] MEDS: APIXAB 2.5 MG TABLET PO SCH (09:05)
[2022-06-06] MEDS: PREDNISONE 10 MG TAB PO SCH (09:05)
[2022-06-06] MEDS: AMIODARONE HCL 200 MG TAB PO SCH (09:05)
[2022-06-06 12:00] VITALS: BP 141/62
[2022-06-06 16:17] VITALS: BP 148/53
[2022-06-06 20:00] VITALS: BP 139/78
[2022-06-06 21:00] VITALS: BP 139/78
[2022-06-06] MEDS: ROPINIROLE HCL 1 MG TAB PO SCH (21:34)
[2022-06-06] MEDS: ATORVASTATIN 40 MG TAB PO SCH (21:34)
[2022-06-07] VITALS (8 sets, daily range): BP systolic 130–146; BP diastolic 48–68
[2022-06-07] MEDS: IPRATROPIUM BROMIDE 0.02% 2.5 ML NEB NEB SCH ×4 (01:15→19:40)
[2022-06-07] MEDS: LEVOTHYROXINE SODIUM 50 MCG TAB PO SCH (05:41)
[2022-06-07] MEDS: BUDESONIDE 0.5MG/2 ML NEB INH SCH ×2 (07:10→19:45)
[2022-06-07] MEDS: ALLOPURINOL 100 MG TAB PO SCH (09:31)
[2022-06-07] MEDS: SENNOSIDES 8.6 MG TAB PO SCH (09:31)
[2022-06-07] MEDS: AMIODARONE HCL 200 MG TAB PO SCH (09:32)
[2022-06-07] MEDS: AMLODIPINE BESYLATE 5 MG TAB PO SCH (09:32)
[2022-06-07] MEDS: DOCUSATE SODIUM 100 MG CAP PO SCH (09:32)
[2022-06-07] MEDS: TRELEGY ELLIPTA INH SCH (10:00)
[2022-06-07] MEDS: ATORVASTATIN 40 MG TAB PO SCH (20:25)
[2022-06-07] MEDS: ROPINIROLE HCL 1 MG TAB PO SCH (20:26)
[2022-06-07] MEDS: ACETAMINOPHEN 325 MG TAB PO PRN (20:29)
[2022-06-07] MEDS: APIXAB 2.5 MG TABLET PO SCH (20:44)
[2022-06-08] VITALS: BP 134/66
[2022-06-08] MEDS: IPRATROPIUM BROMIDE 0.02% 2.5 ML NEB NEB SCH ×3 (01:10→13:00)
[2022-06-08 04:00] VITALS: BP 128/62
[2022-06-08] MEDS: LEVOTHYROXINE SODIUM 50 MCG TAB PO SCH (05:57)
[2022-06-08] MEDS: TRELEGY ELLIPTA INH SCH (06:00)
[2022-06-08] MEDS: BUDESONIDE 0.5MG/2 ML NEB INH SCH (06:30)
[2022-06-08 08:27] VITALS: BP 142/55
[2022-06-08] MEDS: DOCUSATE SODIUM 100 MG CAP PO SCH (08:31)
[2022-06-08] MEDS: ALLOPURINOL 100 MG TAB PO SCH (08:32)
[2022-06-08] MEDS: AMLODIPINE BESYLATE 5 MG TAB PO SCH (08:33)
[2022-06-08] MEDS: APIXAB 2.5 MG TABLET PO SCH ×2 (08:33→16:44)
[2022-06-08] MEDS: AMIODARONE HCL 200 MG TAB PO SCH (08:35)
[2022-06-08 08:55] VITALS: BP 142/55
[2022-06-08] MEDS: SENNOSIDES 8.6 MG TAB PO SCH (09:41)
[2022-06-08 12:04] VITALS: BP 135/64
== END 2022-06-08 17:05 | disposition home or self-care (01) | DRG 291 ==
LOC: ER 20:46 → ERHOLD 22:04 → MED/SURG3 23:32
PROVIDERS: ADMIT Internal Medicine; ATTEND Internal Medicine
DX: I11.0 Hypertensive heart disease with heart failure (principal); I50.33 Acute on chronic diastolic (congestive) heart failure; J18.9 Pneumonia, unspecified organism; E87.20 Acidosis, unspecified; J44.1 Chronic obstructive pulmonary disease with (acute) exacerbation; J43.9 Emphysema, unspecified; Z99.81 Dependence on supplemental oxygen; E66.01 Morbid (severe) obesity due to excess calories; Z68.33 Body mass index [BMI] 33.0-33.9, adult; G47.33 Obstructive sleep apnea (adult) (pediatric); I25.10 Atherosclerotic heart disease of native coronary artery without angina pectoris; Z95.5 Presence of coronary angioplasty implant and graft; Z87.891 Personal history of nicotine dependence; Z88.1 Allergy status to other antibiotic agents; Z88.0 Allergy status to penicillin; M10.9 Gout, unspecified; I48.0 Paroxysmal atrial fibrillation; Z79.01 Long term (current) use of anticoagulants; M19.90 Unspecified osteoarthritis, unspecified site; I27.20 Pulmonary hypertension, unspecified; Z20.822 Contact with and (suspected) exposure to COVID-19
CPT/HCPCS: 36415; 71045; 71250; 80048; 80053; 82550; 82553; 83605; 83735; 83880; 84100; 84132; 84443; 84484; 85025; 87040; 87071; 87205; 93005; 93306; 94640; 94799; 99252; 99284; J0696; J1940; J2920; J3410; J7050; J7512; Q9967

== ENCOUNTER 2022-08-07 14:28 | Inpatient (IN) | payer MEDICARE ==
[~2022-08-07] VITALS: Ht 160 cm; Wt 83.9 kg
[~2022-08-07 14:28] MED LIST: ALLOPURINOL100 MG PO; AMIODARONE HCL100 MG PO; ATORVASTATIN CA40 MG PO; ELIQUIS2.5 MG PO; FUROSEMIDE40 MG PO; LEVOTHYROXINE50 MCG PO; ROPINIROLE HCL1 MG PO; TRELEGY ELLIPT1 EACH INH
[2022-08-07] MEDS ORDERED: METHYLPREDNISOLONE SOD SUCC 125 MG/2ML VIAL IV STA (16:19)
[2022-08-07] MEDS ORDERED: ALBUTEROL/IPRATROPIUM 3 ML NEB NEB ONE (16:30)
[2022-08-07 16:37] LABS: BASOPHILS # (AUTO) 0.1 (0.0-0.1); BASOPHILS % 0.8 % (0.0-1.0); EOSINOPHILS # (AUTO) 0.2 (0.0-0.4); EOSINOPHILS % 2.5 % (0.0-6.0); HEMATOCRIT 47.5 % (34.2-44.1); LYMPHOCYTES # (AUTO) 1.4 (1.0-3.2); LYMPHOCYTES % 15.8 % (18.0-39.1); MEAN CORPUSCULAR HEMOGLOBIN 30.1 pg (28-32); MEAN CORPUSCULAR HGB CONC 31.6 g/dL (31-35); MEAN CORPUSCULAR VOLUME 95.4 fL (81-99); MONOCYTES # (AUTO) 0.9 (0.2-0.8); MONOCYTES % 10.4 % (4.4-11.3); NEUTROPHILS # (AUTO) 6.1 (2.1-6.9); PLATELET COUNT 306 x10e3/uL (140-360); RED BLOOD COUNT 4.98 x10e6/uL (3.6-5.1); RED CELL DISTRIBUTION WIDTH 15.1 % (11.7-14.4)
[2022-08-07 16:43] VITALS: PULSE 72; RESP 22; O2SAT 97
[2022-08-07 16:53] LABS: INR 1.08; PROTHROMBIN TIME 14.5 seconds (11.9-14.5)
[2022-08-07 16:54] LABS: PARTIAL THROMBOPLASTIN TIME 32.2 seconds (23.8-35.5)
[2022-08-07 17:04] LABS: ALBUMIN 3.6 g/dL (3.5-5.0); ANION GAP 16.9 mmol/L (8-16); CALCIUM 9.8 mg/dL (8.4-10.2); CREATININE, SERUM 1.41 mg/dL (0.57-1.11)
[2022-08-07 17:07] LABS: POTASSIUM 2.9 mmol/L (3.5-5.1)
[2022-08-07] MEDS ORDERED: POTASSIUM CHLORIDE 20 MEQ TAB CR PO STA (17:26)
[2022-08-07 17:45] LABS: ABG PCO2 60 mmHg (35-45); ABG PH 7.53 (7.35-7.45); ABG PO2 65 mmHg (80-105); ABG TCO2 50
[2022-08-07 17:46] LABS: ABG HCO3 50 mmol/L (22-26)
[2022-08-07] MEDS ORDERED: FUROSEMIDE INJ 10 MG/ML 4 ML VIAL IV ONE (18:15)
[2022-08-07] MEDS: FAMOTIDINE 20 MG/2 ML VIAL IV SCH (19:32)
[2022-08-07 21:15] VITALS: PULSE 66; RESP 20; O2SAT 95
[2022-08-07] MEDS: IPRATROPIUM BROMIDE 0.02% 2.5 ML NEB NEB SCH (21:15)
[2022-08-07] MEDS: ALBUTEROL SULF 0.083% NEB SOLN 3 ML NEB NEB SCH (21:15)
[2022-08-07] MEDS ORDERED: METHYLPREDNISOLONE SOD SUCC 125 MG/2ML VIAL IV SCH (22:00)
[2022-08-07] MEDS ORDERED: FUROSEMIDE INJ 10 MG/ML 4 ML VIAL IV SCH (22:00)
[2022-08-07 23:57] VITALS: BP 156/93; PULSE 70; RESP 20; TEMP 97.2; O2SAT 93
[2022-08-08] VITALS (12 sets, daily range): BP systolic 116–135; BP diastolic 46–73; PULSE 66–86; RESP 17–22; TEMP 97.2–98.2; O2SAT 92–98
[2022-08-08] MEDS: IPRATROPIUM BROMIDE 0.02% 2.5 ML NEB NEB SCH ×5 (02:17→19:17)
[2022-08-08] MEDS: ALBUTEROL SULF 0.083% NEB SOLN 3 ML NEB NEB SCH ×5 (02:17→19:17)
[2022-08-08 04:57] LABS: BASOPHILS % 0.2 % (0.0-1.0); HEMATOCRIT 45.5 % (34.2-44.1); LYMPHOCYTES # (AUTO) 0.3 (1.0-3.2); LYMPHOCYTES % 5.9 % (18.0-39.1); MEAN CORPUSCULAR HEMOGLOBIN 29.6 pg (28-32); MEAN CORPUSCULAR VOLUME 89.9 fL (81-99); MONOCYTES % 0.8 % (4.4-11.3); NEUTROPHILS # (AUTO) 4.7 (2.1-6.9); NEUTROPHILS % 92.9 % (38.7-80.0); PLATELET COUNT 265 x10e3/uL (140-360); RED BLOOD COUNT 5.06 x10e6/uL (3.6-5.1); RED CELL DISTRIBUTION WIDTH 14.6 % (11.7-14.4)
[2022-08-08 05:20] LABS: ALBUMIN 3.3 g/dL (3.5-5.0); ALBUMIN/GLOBULIN RATIO 0.9 (0.8-2.0); ANION GAP 18.7 mmol/L (8-16); CALCIUM 9.6 mg/dL (8.4-10.2); CHOL/HDL RATIO 2.7 (3.0-3.6); CREATININE, SERUM 1.52 mg/dL (0.57-1.11); MAGNESIUM 1.8 MG/DL (1.3-2.1)
[2022-08-08 05:35] LABS: POTASSIUM 2.7 mmol/L (3.5-5.1)
[2022-08-08] MEDS: FAMOTIDINE 20 MG/2 ML VIAL IV SCH ×2 (05:56→17:16)
[2022-08-08] MEDS: METHYLPREDNISOLONE SOD SUCC 125 MG/2ML VIAL IV SCH ×3 (05:57→21:22)
[2022-08-08] MEDS ORDERED: POTASSIUM CHLORIDE 20 MEQ TAB CR PO STA (06:48)
[2022-08-08] MEDS ORDERED: POTASSIUM CHLORIDE 20MEQ/100ML 200 ML IV ONE (07:00)
[2022-08-08] MEDS ORDERED: FUROSEMIDE INJ 10 MG/ML 4 ML VIAL IV SCH (07:00)
[2022-08-08] MEDS: BUDESONIDE 0.5MG/2 ML NEB INH SCH ×2 (07:06→19:32)
[2022-08-08] MEDS ORDERED: LEVOTHYROXINE SODIUM 50 MCG TAB PO SCH (07:30)
[2022-08-08] MEDS ORDERED: SODIUM CHLORIDE 0.9% 500ML 500 ML ONE ×2 (07:49→13:50)
[2022-08-08] MEDS: POTASSIUM CHLORIDE 20MEQ/100ML 100 ML IV SCH ×2 (07:54→11:39)
[2022-08-08] MEDS: AMIODARONE HCL 200 MG TAB PO SCH (07:55)
[2022-08-08] MEDS: APIXAB 2.5 MG TABLET PO SCH ×2 (07:55→17:16)
[2022-08-08] MEDS: ALLOPURINOL 100 MG TAB PO SCH (07:55)
[2022-08-08] MEDS: ATORVASTATIN 40 MG TAB PO SCH (07:55)
[2022-08-08] MEDS: NICOTINE 14 MG/EA PATCH TOP SCH (10:28)
[2022-08-08] MEDS ORDERED: POTASSIUM CHLORIDE 10MEQ EA PO ONE (14:45)
[2022-08-08 16:51] LABS: ANION GAP 20.1 mmol/L (8-16); CALCIUM 9.3 mg/dL (8.4-10.2); CREATININE, SERUM 1.79 mg/dL (0.57-1.11); POTASSIUM 3.1 mmol/L (3.5-5.1)
[2022-08-08] MEDS ORDERED: POTASSIUM CHLORIDE 20 MEQ TAB CR PO ONE (19:00)
[2022-08-08] MEDS: ROPINIROLE HCL 1 MG TAB PO SCH (21:23)
[2022-08-08] MEDS: ACETAMINOPHEN 325 MG TAB PO PRN (21:25)
[2022-08-09] VITALS (12 sets, daily range): BP systolic 113–132; BP diastolic 42–93; PULSE 20–80; RESP 18–26; TEMP 97.7–98.4; O2SAT 92–100
[2022-08-09 02:44] LABS: CLARITY,URINE CLEAR (CLEAR); COLOR,URINE YELLOW (YELLOW); KETONES,URINE NEGATIVE (NEGATIVE); LEUKOCYTE ESTERASE ,URINE TRACE (NEGATIVE); NITRITE,URINE NEGATIVE (NEGATIVE); PROTEIN,URINE DIPSTICK NEGATIVE (NEGATIVE); URINE UROBILINOGEN 0.2 mg/dL (0.2 - 1)
[2022-08-09 02:46] LABS: BACTERIA,URINE RARE /HPF; RBC,URINE >50 /HPF (0-5); WBC,URINE (MAN) 0-5 /HPF (0-5)
[2022-08-09] MEDS: IPRATROPIUM BROMIDE 0.02% 2.5 ML NEB NEB SCH ×8 (03:00→23:48)
[2022-08-09] MEDS: ALBUTEROL SULF 0.083% NEB SOLN 3 ML NEB NEB SCH ×8 (03:00→23:48)
[2022-08-09] MEDS: FAMOTIDINE 20 MG/2 ML VIAL IV SCH ×2 (05:17→17:55)
[2022-08-09 07:18] LABS: ANION GAP 16.8 mmol/L (8-16); CALCIUM 9.4 mg/dL (8.4-10.2); CREATININE, SERUM 1.42 mg/dL (0.57-1.11); PHOSPHORUS 2.7 MG/DL (2.3-4.7); POTASSIUM 3.8 mmol/L (3.5-5.1)
[2022-08-09] MEDS: BUDESONIDE 0.5MG/2 ML NEB INH SCH ×2 (07:20→19:25)
[2022-08-09] MEDS: APIXAB 2.5 MG TABLET PO SCH ×2 (08:55→17:55)
[2022-08-09] MEDS: ALLOPURINOL 100 MG TAB PO SCH (08:55)
[2022-08-09] MEDS: AMIODARONE HCL 200 MG TAB PO SCH (08:55)
[2022-08-09] MEDS: ATORVASTATIN 40 MG TAB PO SCH (08:56)
[2022-08-09] MEDS: NICOTINE 14 MG/EA PATCH TOP SCH (08:56)
[2022-08-09] MEDS ORDERED: FUROSEMIDE INJ 10 MG/ML 4 ML VIAL IV SCH (09:00)
[2022-08-09] MEDS: ACETAMINOPHEN 325 MG TAB PO PRN (15:50)
[2022-08-09] MEDS: ROPINIROLE HCL 1 MG TAB PO SCH (21:50)
[2022-08-09] MEDS: ALBUTEROL SULFATE HFA 8GM INHALATION AEROSOL INH PRN (23:30)
[2022-08-10] VITALS (11 sets, daily range): BP systolic 119–144; BP diastolic 57–64; PULSE 62–83; RESP 17–24; TEMP 97.6–98.5; O2SAT 92–97
[2022-08-10] MEDS: ALBUTEROL SULF 0.083% NEB SOLN 3 ML NEB NEB SCH ×4 (00:10→20:20)
[2022-08-10] MEDS: IPRATROPIUM BROMIDE 0.02% 2.5 ML NEB NEB SCH ×5 (00:10→20:20)
[2022-08-10] MEDS: ALBUTEROL SULFATE HFA 8GM INHALATION AEROSOL INH PRN (03:32)
[2022-08-10] MEDS: ACETAMINOPHEN 325 MG TAB PO PRN ×2 (05:08→20:45)
[2022-08-10] MEDS: FAMOTIDINE 20 MG/2 ML VIAL IV SCH ×2 (05:08→17:20)
[2022-08-10] MEDS: LEVOTHYROXINE SODIUM 50 MCG TAB PO SCH (05:09)
[2022-08-10 07:36] LABS: BASOPHILS % 0.2 % (0.0-1.0); EOSINOPHILS # (AUTO) 0.1 (0.0-0.4); EOSINOPHILS % 0.6 % (0.0-6.0); HEMATOCRIT 41.3 % (34.2-44.1); HEMOGLOBIN 13.2 g/dL (12.0-16.0); LYMPHOCYTES # (AUTO) 1.8 (1.0-3.2); LYMPHOCYTES % 16.4 % (18.0-39.1); MEAN CORPUSCULAR HEMOGLOBIN 29.9 pg (28-32); MEAN CORPUSCULAR VOLUME 93.4 fL (81-99); MONOCYTES # (AUTO) 0.7 (0.2-0.8); MONOCYTES % 6.8 % (4.4-11.3); NEUTROPHILS # (AUTO) 8.2 (2.1-6.9); NEUTROPHILS % 75.7 % (38.7-80.0); PLATELET COUNT 238 x10e3/uL (140-360); RED BLOOD COUNT 4.42 x10e6/uL (3.6-5.1); RED CELL DISTRIBUTION WIDTH 15.5 % (11.7-14.4)
[2022-08-10 08:08] LABS: ANION GAP 12.5 mmol/L (8-16); CALCIUM 9.2 mg/dL (8.4-10.2); CREATININE, SERUM 1.5 mg/dL (0.57-1.11); POTASSIUM 3.5 mmol/L (3.5-5.1)
[2022-08-10] MEDS: BUDESONIDE 0.5MG/2 ML NEB INH SCH ×2 (08:10→20:20)
[2022-08-10] MEDS: ATORVASTATIN 40 MG TAB PO SCH (08:57)
[2022-08-10] MEDS: ALLOPURINOL 100 MG TAB PO SCH (08:58)
[2022-08-10] MEDS: AMIODARONE HCL 200 MG TAB PO SCH ×2 (08:58→09:11)
[2022-08-10] MEDS: NICOTINE 14 MG/EA PATCH TOP SCH (08:59)
[2022-08-10] MEDS: FUROSEMIDE INJ 10 MG/ML 4 ML VIAL IV SCH ×2 (09:00→17:21)
[2022-08-10] MEDS: APIXAB 2.5 MG TABLET PO SCH ×2 (09:13→17:20)
[2022-08-10] MEDS ORDERED: ACETAZOLAMIDE SODIUM 500 MG/VIAL IV ONE (09:15)
[2022-08-10] MEDS: POTASSIUM CHLORIDE 20 MEQ TAB CR PO SCH ×2 (09:21→17:20)
[2022-08-10] MEDS: AZITHROMYCIN 250 MG TAB PO SCH (11:43)
[2022-08-10] MEDS ORDERED: METHYLPREDNISOLONE SOD SUCC 40 MG/ML VIAL 1ML IV SCH (14:45)
[2022-08-10] MEDS: DEXAMETHASONE SOD PHOS INJ 4 MG/ML SDV IV SCH ×2 (15:30→20:45)
[2022-08-10] MEDS: ACETYLCYSTEINE 200 MG/ML 4ML VIAL INH SCH ×2 (19:06→20:20)
[2022-08-10] MEDS: ROPINIROLE HCL 1 MG TAB PO SCH (20:45)
[2022-08-10] MEDS ORDERED: GUAIFENESIN/DEXTROMETHORPHAN LIQD 5 ML UDC NG PRN (21:00)
[2022-08-10] MEDS: BENZONATATE 100 MG CAP PO SCH (22:09)
[2022-08-11] VITALS (7 sets, daily range): BP systolic 120–129; BP diastolic 49–64; PULSE 63–74; RESP 18–22; TEMP 97.7–98.5; O2SAT 94–99
[2022-08-11] MEDS: ALBUTEROL SULF 0.083% NEB SOLN 3 ML NEB NEB SCH ×4 (03:00→15:00)
[2022-08-11] MEDS: IPRATROPIUM BROMIDE 0.02% 2.5 ML NEB NEB SCH ×4 (03:00→15:00)
[2022-08-11 04:57] LABS: BASOPHILS % 0.1 % (0.0-1.0); HEMATOCRIT 45.1 % (34.2-44.1); HEMOGLOBIN 14.4 g/dL (12.0-16.0); LYMPHOCYTES # (AUTO) 0.3 (1.0-3.2); LYMPHOCYTES % 4.5 % (18.0-39.1); MEAN CORPUSCULAR HEMOGLOBIN 29.4 pg (28-32); MEAN CORPUSCULAR HGB CONC 31.9 g/dL (31-35); MONOCYTES # (AUTO) 0.1 (0.2-0.8); MONOCYTES % 1.7 % (4.4-11.3); NEUTROPHILS # (AUTO) 6.7 (2.1-6.9); NEUTROPHILS % 93.4 % (38.7-80.0); PLATELET COUNT 257 x10e3/uL (140-360); RED CELL DISTRIBUTION WIDTH 15.1 % (11.7-14.4)
[2022-08-11 05:22] LABS: ALBUMIN 3.3 g/dL (3.5-5.0); ALBUMIN/GLOBULIN RATIO 1.1 (0.8-2.0); ANION GAP 15.3 mmol/L (8-16); CALCIUM 9.1 mg/dL (8.4-10.2); CREATININE, SERUM 1.48 mg/dL (0.57-1.11); PHOSPHORUS 4.1 MG/DL (2.3-4.7); POTASSIUM 4.3 mmol/L (3.5-5.1)
[2022-08-11] MEDS: LEVOTHYROXINE SODIUM 50 MCG TAB PO SCH (06:09)
[2022-08-11] MEDS: BENZONATATE 100 MG CAP PO SCH ×2 (06:09→14:56)
[2022-08-11] MEDS: FAMOTIDINE 20 MG/2 ML VIAL IV SCH (06:09)
[2022-08-11] MEDS: BUDESONIDE 0.5MG/2 ML NEB INH SCH (08:41)
[2022-08-11] MEDS: ACETYLCYSTEINE 200 MG/ML 4ML VIAL INH SCH (08:59)
[2022-08-11] MEDS ORDERED: ACETAZOLAMIDE SODIUM 500 MG/VIAL IV ONE (09:30)
[2022-08-11] MEDS: APIXAB 2.5 MG TABLET PO SCH (10:21)
[2022-08-11] MEDS: NICOTINE 14 MG/EA PATCH TOP SCH (10:21)
[2022-08-11] MEDS: FUROSEMIDE INJ 10 MG/ML 4 ML VIAL IV SCH (10:21)
[2022-08-11] MEDS: DEXAMETHASONE SOD PHOS INJ 4 MG/ML SDV IV SCH (10:22)
[2022-08-11] MEDS: POTASSIUM CHLORIDE 20 MEQ TAB CR PO SCH (10:22)
[2022-08-11] MEDS: ALLOPURINOL 100 MG TAB PO SCH (10:23)
[2022-08-11] MEDS: ATORVASTATIN 40 MG TAB PO SCH (10:23)
[2022-08-11] MEDS: AMIODARONE HCL 200 MG TAB PO SCH (10:23)
[2022-08-11] MEDS: AZITHROMYCIN 250 MG TAB PO SCH (12:14)
[2022-08-11] MEDS ORDERED: FAMOTIDINE 20 MG TAB PO SCH (16:30)
[2022-08-11] MEDS ORDERED: FUROSEMIDE 20 MG TAB PO SCH (17:00)
== END 2022-08-11 16:21 | disposition home or self-care (01) | DRG 190 ==
LOC: ER 14:42 → ERHOLD 18:16 → MED/SURG 23:55
PROVIDERS: ADMIT Internal Medicine; ATTEND Internal Medicine
DX: J44.1 Chronic obstructive pulmonary disease with (acute) exacerbation (principal); J96.21 Acute and chronic respiratory failure with hypoxia; J96.22 Acute and chronic respiratory failure with hypercapnia; N17.9 Acute kidney failure, unspecified; I13.0 Hypertensive heart and chronic kidney disease with heart failure and stage 1 through stage 4 chronic kidney disease, or unspecified chronic kidney disease; E87.3 Alkalosis; Z99.81 Dependence on supplemental oxygen; I50.9 Heart failure, unspecified; E78.5 Hyperlipidemia, unspecified; M54.12 Radiculopathy, cervical region; I48.0 Paroxysmal atrial fibrillation; N18.30 Chronic kidney disease, stage 3 unspecified; M10.9 Gout, unspecified; E03.9 Hypothyroidism, unspecified; E87.6 Hypokalemia; M54.9 Dorsalgia, unspecified; G89.29 Other chronic pain; M16.11 Unilateral primary osteoarthritis, right hip; F17.210 Nicotine dependence, cigarettes, uncomplicated; E87.70 Fluid overload, unspecified; Z88.0 Allergy status to penicillin; Z20.822 Contact with and (suspected) exposure to COVID-19; Z79.01 Long term (current) use of anticoagulants; Z60.2 Problems related to living alone
CPT/HCPCS: 36415; 36600; 71045; 71250; 80048; 80053; 80061; 81001; 82550; 82553; 82805; 83735; 83880; 84100; 84484; 85025; 85610; 85730; 87040; 93005; 94664; 94799; 99284; J1100; J1940; J2930; J3480; J7040; J7050